=== PATIENT | female | born 1980 | race Caucasian/White ===

== ENCOUNTER 2017-03-30 22:21 | Emergency (ER) | payer BC ==
[~2017-03-30] VITALS: Ht 157.5 cm; Wt 62.4 kg
[~2017-03-30 22:21] MED LIST: BACT800T5 PO; DOXY100T PO
[2017-03-30 22:25] VITALS: BP 118/88; PULSE 85; RESP 16; TEMP 98.4; O2SAT 98
[2017-03-30] MEDS ORDERED: IBUP1TAB5 PO (22:39)
[2017-03-30] MEDS ORDERED: MULTTAB67 PO (22:39)
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
--- NOTE | 2017-03-30 23:38 | RADRPT ---
EXAM DATE/TIME: 03/30/2017 23:16 [facility] COMPARISON: No previous studies available for comparison. INDICATIONS : Neck pain. Eye spasms. RADIATION DOSE: 25.26 CTDIvol (mGy) MEDICAL HISTORY : None SURGICAL HISTORY : None. ENCOUNTER: Initial ACUITY: 4 - 6 days PAIN SCALE: 7/10 LOCATION: Bilateral neck TECHNIQUE: Volumetric scanning of the cervical spine was performed. Multiplanar reconstructions in the sagittal, coronal and oblique axial planes were performed. Using automated exposure control and adjustment o f the mA and/or kV according to patient size, radiation dose was kept as low as reasonably achievable to obtain optimal diagnostic quality images. DICOM format image data is available electronically f or review and comparison. FINDINGS: VERTEBRAE: Normal vertebral body height. ALIGNMENT: No evidence of subluxation. C2-C3: The bony spinal canal is normal in size. No evidence of disc bulge or herniation. The neural forami na are bilaterally patent. C3-C4: The bony spinal canal is normal in size. No evidence of disc bulge or herniation. The neural forami na are bilaterally patent. C4-C5: The bony spinal canal is normal in size. No evidence of disc bulge or herniation. The neural forami na are bilaterally patent. C5-C6: The bony spinal canal is normal in size. No evidence of disc bulge or herniation. The neural forami na are bilaterally patent. C6-C7: The bony spinal canal is normal in size. No evidence of disc bulge or herniation. The neural forami na are bilaterally patent. C7-T1: The bony spinal canal is normal in size. No evidence of disc bulge or herniation. The neural forami na are bilaterally patent. CONCLUSION: Unremarkable exam with no evidence of disc protrusion or spinal stenosis. Eugenio Batista MD on March 30, 2017 at 23:35 Board Certified Radiologist. This report was verified electronically.
[2017-03-30] MEDS ORDERED: ORPH100T2 PO (23:44)
[2017-03-30 23:45] VITALS: BP 113/70; PULSE 74; RESP 16; O2SAT 98
== END 2017-03-31 00:06 | disposition home or self-care (01) ==
LOC: PHED 22:21
DX: M54.2 Cervicalgia (principal); M79.1 Myalgia
CPT/HCPCS: 72125; 99284